=== PATIENT | male | born 1965 ===

== ENCOUNTER 2022-08-22 15:18 | Inpatient (IN) | payer MEDICARE, OTHER ==
[~2022-08-22] VITALS: Ht 177.8 cm; Wt 99.1 kg
[2022-08-22 18:03] VITALS: BP 126/72
--- NOTE | 2022-08-22 18:43 | NUR ---
PT ARRIVED TO THE MEDICAL FLOOR DIRECT ADMIT FROM [facility]. THE PT IS DROWSY NOT EASILY AWAKENED, PTT ORIENTED TO THE CALL SYSTEM. COMPRESSOR REPAIRER STEFFEN AT THE BEDSIDE TO EVALUATE, IDANE CATH ORDERED AND PLACED, THE PT TOLERATED IT WELL. 1800 CC IMMEDIATLY DRAINED UA SENT FOR TOXICOLOGY. VSS. CALL LIGHT IN REACH
[2022-08-22] MEDS ORDERED: Aspir 8181 MG PO (19:04)
[2022-08-22] MEDS ORDERED: OMEP20ER PO (19:05)
[2022-08-22] MEDS ORDERED: TRAZ100 PO (19:05)
[2022-08-22] MEDS ORDERED: ABILIFY MYCITE10 M2 PO (19:05)
[2022-08-22] MEDS ORDERED: ATOR40TA PO (19:06)
[2022-08-22] MEDS ORDERED: METO25 PO (19:06)
[2022-08-22] MEDS ORDERED: ESCI20 PO (19:06)
[2022-08-22] MEDS ORDERED: Prinivil10 MG PO (19:06)
[2022-08-22] MEDS ORDERED: RISP1 PO (19:07)
[2022-08-22] MEDS ORDERED: FLUT1DIS5 INH (19:07)
[2022-08-22] MEDS ORDERED: ALBU90OI6 INH (19:08)
[2022-08-22 19:09] VITALS: BP 114/63
--- NOTE | 2022-08-22 19:33 | NUR ---
CALL TO [employer] TO NOTIFY OF CRITICAL LAB FROM [facility], BLOOD CULTURE OF GRAM +
[2022-08-22 19:36] LABS: U Amphetamine Screen Not Detected; U Barbituate Screen Not Detected; U Benzodiazapine Screen Not Detected; U Cocaine Screen Not Detected; U Methamphetamine Screen Not Detected
[2022-08-22 19:37] LABS: U Buprenorphine Screen Not Detected; U Cannabinoids Screen Not Detected; U Methadone Screen Not Detected; U Opiates Screen Not Detected; U Oxycodone Screen Not Detected; U Phencyclidine Screen Not Detected; U Propoxyphene Screen Not Detected
[2022-08-22 20:09] LABS: Hematocrit 36.5 % (37.0-53.0); Hemoglobin 12.1 g/dL (13.5-17.5); Mean Corpuscular HGB 30.7 pg (26.0-34.0); Mean Corpuscular HGB Conc 33.2 g/dL (31.5-36.5); Mean Corpuscular Volume 93 fL (80-100); Mean Platelet Volume 10.1 fL (9.1-12.4); Platelet Count 119 K/mm3 (150-400); RDW Coefficient Variation 13.8 % (11.7-14.2); RDW Standard Deviation 47.2 fL (35.1-46.3); Red Blood Cell Count 3.94 M/mm3 (4.30-5.90); White Blood Cell Count 12.78 K/mm3 (4.00-11.30)
[2022-08-22 20:28] LABS: Albumin, Blood 2.7 g/dL (3.4-5.0); Albumin/Globulin Ratio 0.8 (0.8-1.8); Bilirubin, Total 0.7 mg/dL (0.1-1.0); Bun/Creatinine Ratio 23.3 (12.0-20.0); Calcium, Blood 7.7 mg/dL (8.5-10.1); Creatinine, Blood 1.16 mg/dL (0.60-1.20); Globulin, Blood 3.3 g/dL (2.2-4.0)
[2022-08-22 20:29] LABS: BAND PERCENT MAN 14 % (0-8); BASOPHILS PERCENT MAN 0 % (0-2); EOSINOPHILS PERCENT MAN 0 % (0-6); LYMPHOCYTES ABSOLUTE MAN 0.12 K/mm3 (0.84-5.20); LYMPHOCYTES PERCENT MAN 1 % (21-46); MONOCYTES PERCENT MAN 0 % (4-13); NEUTROPHILS ABSOLUTE MAN 12.65 K/mm3 (1.96-9.15); SEG NEUTROPHILS PERCENT MAN 85 % (41-73); TOTAL CELLS COUNTED 100
[2022-08-22 22:00] VITALS: BP 123/81
[2022-08-22 22:20] VITALS: BP 144/94
[2022-08-22 22:30] VITALS: BP 142/84
[2022-08-22 23:00] VITALS: BP 118/72
--- NOTE | 2022-08-22 23:03 | NUR ---
ASSUMED CARE: PT TRANSFERRED FROM MEDICAL FLOOR APPROX 22:00. PT DROWSY BUT AWOKEN WITH VERBAL STIMULI. UNABLE TO OBTAIN TEMPORAL, ORAL, OR AXILLARY TEMP; RECTAL PROBE PLACED. CORE TEMP 94.8. WARM BLANKETS AND HEATING PAD APPLIED. SBP 123. HR 60'S, NSR. SPO2 90% ON RA, INCREASED TO 100% ON RA AT 22:20. AT APPROX 22:20, PT STARTED VERBALIZING QUESTIONS AND COMMENTS. DENIED CHEST PAIN/PRESSURE. CENTRAL LINE IN PLACE, INFUSING NS AND VANCOMYCIN PER EMAR. DRIED BLOOD NOTED IN THE ORAL CAVITY, ORAL CARE COMPLETED. DIANE CATHETER IN PLACE DRAINING YELLOW/TAMELA URINE TO GRAVITY. HARSH COUGH NOTED WITHOUT SPUTUM PRODUCTION. REDNESS AND EDEMA ABOUT RLE WITH THREADY PULSE. PT ORIENTED TO ROOM AND CALL LIGHT. NO FURTHER NEEDS AT THIS TIME.
[2022-08-23 04:00] VITALS: BP 99/61
--- NOTE | 2022-08-23 05:21 | NUR ---
SHIFT SUMMARY: NO ACUTE CHANGES FOLLOWING TRANSFER TO PCU. SEE ASSUMPTION OF CARE NOTE FOR DETAILS. VSS. CORE TEMP UP TO 97.0 [address]ER IN PLACE. PT RESTING IN BED. ABLE TO MAKE NEEDS KNOWN TO STAFF AND ANSWER QUESTIONS APPROPRIATELY. CALL LIGHT WITHIN REACH. NO FURTHER NEEDS AT THIS TIME.
[2022-08-23 05:56] LABS: Hematocrit 35.5 % (37.0-53.0); Hemoglobin 11.8 g/dL (13.5-17.5); Mean Corpuscular HGB 30.3 pg (26.0-34.0); Mean Corpuscular HGB Conc 33.2 g/dL (31.5-36.5); Mean Corpuscular Volume 91 fL (80-100); Mean Platelet Volume 9.9 fL (9.1-12.4); Platelet Count 121 K/mm3 (150-400); RDW Coefficient Variation 13.7 % (11.7-14.2); RDW Standard Deviation 46.2 fL (35.1-46.3); Red Blood Cell Count 3.89 M/mm3 (4.30-5.90)
[2022-08-23 06:23] LABS: Albumin, Blood 2.5 g/dL (3.4-5.0); Albumin/Globulin Ratio 0.8 (0.8-1.8); Bilirubin, Total 0.5 mg/dL (0.1-1.0); Bun/Creatinine Ratio 24.2 (12.0-20.0); Calcium, Blood 7.9 mg/dL (8.5-10.1); Creatinine, Blood 0.99 mg/dL (0.60-1.20); Globulin, Blood 3.2 g/dL (2.2-4.0); Magnesium, Blood 1.8 mg/dL (1.6-2.4); Potassium, Blood 3.7 mmol/L (3.5-5.5); Total Protein, Blood 5.7 g/dL (6.4-8.2)
[2022-08-23 07:53] VITALS: BP 117/70
[2022-08-23 08:11] LABS: BAND PERCENT MAN 17 % (0-8); BASOPHILS PERCENT MAN 0 % (0-2); EOSINOPHILS PERCENT MAN 0 % (0-6); LYMPHOCYTES % ATYPICAL MANUAL 1 % (0-0); LYMPHOCYTES ABSOLUTE MAN 0.88 K/mm3 (0.84-5.20); LYMPHOCYTES PERCENT MAN 6 % (21-46); MONOCYTES ABSOLUTE MAN 0.37 K/mm3 (0.16-1.47); MONOCYTES PERCENT MAN 3 % (4-13); NEUTROPHILS ABSOLUTE MAN 11.34 K/mm3 (1.96-9.15); SEG NEUTROPHILS PERCENT MAN 73 % (41-73); TOTAL CELLS COUNTED 100
--- NOTE | 2022-08-23 12:18 | NUR ---
RN/SHIFT SUMMARY MORNING REPORT RECIEVED AND PATIENT GREETED PRIOR TO MEDICATION PASS AND MORNING ASSESSMENT. THE PATIENT IS AWARE AND IN GOOD SPIRIT. HE HAS A CLEFT PALATE AND IS DIFFICULT AT TIMES TO UNDERSTAND. OTHERWISE NO COMPLICATIONS AT TIME OF ASSESSMENT. THE PATIENT WAS HAPPY TO ENJOY A NICE MEAL.
[2022-08-23 15:08] LABS: Source, Urine Foley catheter
[2022-08-23 15:11] LABS: Appearance, Urine Cloudy (Clear); Bilirubin, Urine Neg (Neg); Blood, Urine 5+ (Neg); Color, Urine Yellow (P-Yellow); Glucose Qualitative, Urine Neg (Neg); Ketones, Urine Neg (Neg); Leukocyte Esterase, Urine Neg (Neg); Nitrite, Urine Neg (Neg); Protein, Urine 3+ (Neg); Urobilinogen, Urine NORM (Normal)
[2022-08-23 15:21] LABS: Red Blood Cells, Urine 25-50 /hpf (0-2)
[2022-08-23 15:22] LABS: Amorphous Mod (0-Heavy); Bacteria Mod /hpf; Squamous Epithelial Cells Rare /hpf (Few)
[2022-08-23 16:20] VITALS: BP 112/70
[2022-08-23 20:16] VITALS: BP 139/77
[2022-08-23 22:18] VITALS: BP 131/75
[2022-08-24 03:48] VITALS: BP 137/78
--- NOTE | 2022-08-24 05:32 | NUR ---
SHIFT SUMMERY, PT ARRIVED TO FLOOR FROM PCU. PT RESTING MOST OF THE NIGHT. AWOKE TO REQUEST A [place] AND LATER CALLED REQUESTING MED FOR PSIN TO HIS FOOT. PT RESTING AT THIS TIME AGAIN. CALL LIGHT IN REACH
[2022-08-24 07:52] LABS: Vancomycin, Trough 20.3 ug/mL (5.0-10.0)
[2022-08-24 08:00] VITALS: BP 117/78
[2022-08-24 15:51] VITALS: BP 135/71
[2022-08-24 16:59] VITALS: BP 147/83
--- NOTE | 2022-08-24 18:36 | NUR ---
SHIFT SUMMARY PT UP AMBULATING IN HALLWAY WITH CAREGIVER USING A FWW. REPORTED PAIN TO R 5TH TOE THIS MORNING AND MEDICATED FOR PAIN. REPORTED FEELING LIKE HIS HEART RATE WAS RACING THIS AFTERNOON AND EKG COMPLETED-AFIB WITH RVR. MD NOTIFIED WITH ORDERS TO GIVE HS METOPROLOL EARLY AND START TELE. PT STATES HE WANTS HIS DIANE OUT THIS EVENING. DISCUSSED WAITING TIL MORNING OR DOING IT TONIGHT. WILL SPEAK WITH NOC RN. PT WITN NO RESP DISTRESS NOTED.
[2022-08-24 20:29] VITALS: BP 111/68
--- NOTE | 2022-08-25 02:44 | NUR ---
SHIFT SUMMERY. PT SLEEPING WELL THIS NIGHT. PT HAD A NIGHT ESVIN WHERE HE WAS SHAKING THE RAILS AND HITTING THE BED. PT CAN HAVE OUT DIANE BUT WANTED TO KEEP IT IN THIS NIGHT DUE TO HE HAD NOT BEEN ABLE TO SLEEP AND WANTED TO REST. CALL LIGHT IN REACH.
[2022-08-25 04:38] VITALS: BP 116/86
[2022-08-25 07:52] VITALS: BP 138/82
[2022-08-25] MEDS ORDERED: TAMS.4ER PO (16:09)
[2022-08-25] MEDS ORDERED: CEPH500 PO (16:09)
[2022-08-25 16:39] VITALS: BP 123/86
--- NOTE | 2022-08-25 17:09 | NUR ---
DISCHARGE SUMMARY PATIENT HAS C/O VERY MINIMAL PAIN TODAY. DRY COUGH NOTED, LUNGS CLEAR, DENIES SHORTNESS OF BREATH. POWERGLIDE REMOVED, EDUCATION AND MEDICATION LIST PACKET GIVEN TO PATIENT, EDUCATION PROVIDED, PATIENT AND CAREGIVER VERBALIZE UNDERSTANDING. CONSENT SIGNED. PATIENT LEFT FLOOR AT 1707 WITH ALCIDES ROONEY AND LEAVING VIA PRIVATE VEHICLE WITH PRIVATE PAID CAREGIVER.
== END 2022-08-25 17:06 | disposition home or self-care (01) | DRG 871 ==
LOC: MEDS 15:18 → PCU 17:40 → MEDS 08-23 22:16
PROVIDERS: Internal Medicine; Nurse Practitioner Acute Care; ADMIT Family Medicine
PROC: 4A033R1 Measurement of Arterial Saturation, Peripheral, Percutaneous Approach (ICD-10-PCS; principal; 2022-08-22)
PROC: 3E03329 Introduction of Other Anti-infective into Peripheral Vein, Percutaneous Approach (ICD-10-PCS; 2022-08-22)
PROC: 0T9B70Z Drainage of Bladder with Drainage Device, Via Natural or Artificial Opening (ICD-10-PCS; 2022-08-22)
DX: A41.9 Sepsis, unspecified organism (principal); G92.8 Other toxic encephalopathy; J96.11 Chronic respiratory failure with hypoxia; J44.1 Chronic obstructive pulmonary disease with (acute) exacerbation; L03.115 Cellulitis of right lower limb; F15.20 Other stimulant dependence, uncomplicated; I50.32 Chronic diastolic (congestive) heart failure; I25.10 Atherosclerotic heart disease of native coronary artery without angina pectoris; I67.9 Cerebrovascular disease, unspecified; I48.0 Paroxysmal atrial fibrillation; I11.0 Hypertensive heart disease with heart failure; K21.9 Gastro-esophageal reflux disease without esophagitis; F41.9 Anxiety disorder, unspecified; F43.10 Post-traumatic stress disorder, unspecified; F17.210 Nicotine dependence, cigarettes, uncomplicated; Z99.81 Dependence on supplemental oxygen; Z59.02 Unsheltered homelessness; Z86.73 Personal history of transient ischemic attack (TIA), and cerebral infarction without residual deficits; Z88.5 Allergy status to narcotic agent
CPT/HCPCS: 36415; 36600; 80053; 80202; 81001; 82803; 82947; 83735; 83880; 84484; 85025; 87040; 87086; 93005; 93010; 93306; 93971; 94640; 94664; 94760; 94762; A9270; C1751; J0690; J1650; J3370; J7030; J7050